=== PATIENT | female | born 1975 | race Caucasian/White ===

== ENCOUNTER 2018-11-09 07:16 | Emergency (ER) | payer BC, OTHER ==
[~2018-11-09] VITALS: Ht 149.9 cm; Wt 56.7 kg
[2018-11-09 07:20] VITALS: BP_SYST 120
--- NOTE | 2018-11-09 07:20 | NUR ---
Patient to ER bed 6 to gown for evaluation. Side rails up. Report given to HUY Wilkerson.
--- NOTE | 2018-11-09 07:25 | NUR ---
Patient arrived via POV, AAOx4, and ambulatory with steady gait. Patient c/c of chest pain, discomfort. Patient states onset was 3 days ago, worsening over night. States pain is difficult to describe, burning sensation. She has been having episode of chest discomfort for the past year. No nausea and vomiting at this time. Patient points pain to lower portion of sternum between xyphoid process and umbilicus. Patient states appetite and weight have been fluctuating. She has been following up with [facility] and she has been told the only abnormal is high cortisol level. Patient calm and cooperative, placed on vehicle monitor technician. EKG completed and given to physician. Will continue to follow up and monitor.
--- NOTE | 2018-11-09 07:38 | NUR ---
ER at bedside examining patient.
--- NOTE | 2018-11-09 08:50 | NUR ---
Patient resting comfortably, needs are met at this time. Provided a blanket as requested.
[2018-11-09 09:05] LABS: BASOPHILS % (AUTO) 0.8 % (0.0-2.0); EOSINOPHILS # (AUTO) 0.1 K/uL (0.0-0.4); EOSINOPHILS % (AUTO) 2.5 % (0.0-4.0); HEMATOCRIT 44.2 % (36-48); LYMPHOCYTES # (AUTO) 1.9 K/uL (1.0-5.5); LYMPHOCYTES % (AUTO) 33.6 % (20.5-51.5); MEAN CORPUSCULAR HEMOGLOBIN 32 pg (27-31); MEAN CORPUSCULAR HGB CONC 34 % (32-36); MEAN CORPUSCULAR VOLUME 95 fL (79.0-98.0); MONOCYTES # (AUTO) 0.4 K/uL (0.0-1.0); NEUTROPHILS # (AUTO) 3.1 K/uL (1.8-7.7); NEUTROPHILS % (AUTO) 56.1 % (40.0-70.0); PLATELET COUNT (AUTO) 225 K/uL (130-430); RED BLOOD CELL COUNT(AUTO) 4.67 MIL/uL (4.2-6.2); RED CELL DISTRIBUTION WIDTH 12.1 % (9.0-15.0); WHITE BLOOD COUNT (AUTO) 5.6 K/uL (4.8-10.8)
[2018-11-09 09:12] LABS: PROTHROMBIN TIME 10.2 SECS (9.5-12.5)
[2018-11-09 09:21] LABS: ALANINE AMINOTRANSFERASE 16 U/L (12-78); ALBUMIN 3.5 g/dL (3.4-4.8); ASPARTATE AMINOTRANSFERASE 11 U/L (10-37); CALCIUM 9.1 mg/dL (8.4-11.0); CHLORIDE 105 mmol/L (98-107); GLUCOSE 91 mg/dL (70-99); POTASSIUM 3.7 mmol/L (3.5-5.1); SODIUM SERUM 140 mmol/L (136-145); THYROID STIMULATING HORMONE 1.25 uIu/mL (0.36-3.74); TOTAL BILIRUBIN 0.7 mg/dL (0.0-1.0); UREA NITROGEN, BLOOD 11 mg/dL (8-21)
[2018-11-09 09:23] LABS: GFR AFRICAN AMERICAN 116 mL/min (>90)
[2018-11-09 09:27] LABS: ANION GAP 8 (5-15)
--- NOTE | 2018-11-09 09:30 | NUR ---
Urine specimen collected. Sent to lab for resulting.
[2018-11-09 09:47] LABS: BILIRUBIN,URINE NEGATIVE (NEGATIVE); BLOOD, URINE NEGATIVE (NEGATIVE); CLARITY/URINE SL HAZY (CLEAR); COLOR,URINE YELLOW (YELLOW); GLUCOSE,URINE NEGATIVE (NEGATIVE); KETONES,URINE 1+ (NEGATIVE); LEUKOCYTE ESTERASE ,URINE NEGATIVE (NEGATIVE); NITRITE, URINE NEGATIVE (NEGATIVE); PROTEIN URINE NEGATIVE (NEGATIVE); UROBILINOGEN,URINE 0.2 (0.2-1.0)
[2018-11-09 10:18] VITALS: BP_SYST 122
--- NOTE | 2018-11-09 10:18 | NUR ---
Patient given written and verbal discharge instructions and verbalizes understanding. ER MD discussed with patient the results and treatment provided. Patient in stable condition. ID arm band removed. No Rx given. Patient educated on pain management and to follow up with PMD. Pain Scale 3/10. Opportunity for questions provided and answered. Medication side effect fact sheet provided.
== END 2018-11-09 10:18 | disposition home or self-care (01) ==
LOC: SED 07:16
DX: N95.9 Unspecified menopausal and perimenopausal disorder (principal); Z98.51 Tubal ligation status
CPT/HCPCS: 36415; 80053; 81003; 82550-TC; 83880; 84443-TC; 84484; 85025; 85379; 85610-TC; 85730-TC; 93005; 99284